=== PATIENT | male | born 1935 | race Caucasian/White ===

== ENCOUNTER 2018-06-07 07:55 | Emergency (ER) | payer MEDICARE, OTHER ==
[2018-06-07 08:14] VITALS: TEMP 97.5; BMI 28.3
--- NOTE | 2018-06-07 09:47 | PDOC ---
History of Present Illness - General Chief Complaint: Pain, Acute Stated Complaint: TESTICULAR PAIN Time Seen by Provider: 06/07/18 09:19 History Source: Patient Exam Limitations: Language Barrier ([id number]) - History of Present Illness Initial Comments: 06/07/18 09:55 83 yo M with a hx of HTN, HLD, and arthritis who presents to the emergency department with worsening left scrotal pain and swelling with concurrent right scrotal swelling. He states he has had this problem for 8 months, but it has acutely worsened since 05/05/2018. He is followed by Dr. Youssef (urology) in [place] and saw him last week and was ordered a testicular US with doppler. He was unable to wait due to severity of the pain. He described the pain in the left testicle as sharp, 9/10, non radiating, and without relief with tylenol. Denies the following: fever, chills, nausea, vomiting, headaches, abdominal pain , hematuria, hematochezia, melena, diarrhea, and leg pain/swelling. Endorses: constipation. Pmhx: Refer to above Shx: Prostate 8 yrs ago Meds: Unknown. denies anti-coagulant use Allergies: NKDA Social: Denies tobacco, alcohol, and substance abuse Past History - Past Medical History Allergies/Adverse Reactions: Allergies Allergy/AdvReac Type Severity Reaction Status Date / Time No Known Allergies Allergy Verified 06/07/18 10:12 Home Medications: Ambulatory Orders Gabapentin [Neurontin] mg PO ASDIR 06/07/18 Lisinopril [Zestril] 10 mg PO DAILY 06/07/18 Meloxicam [Mobic] 15 mg PO HS 06/07/18 Mirtazapine [Remeron -] 15 mg PO DAILY 06/07/18 Oxycodone HCl/Acetaminophen [Percocet 5-325 mg Tablet] 1 tab PO Q6H PRN #12 tablet MDD 4 tabs 06/07/18 Rosuvastatin Calcium [Crestor] 5 mg PO HS 06/07/18 COPD: No - Immunization History Immunization Up to Date: Yes - Suicide/Smoking/Psychosocial Hx Smoking History: Never smoked Hx Alcohol Use: No Drug/Substance Use Hx: No Substance Use Type: None Review of Systems - Review of Systems Able to Perform ROS?: Yes Is the patient limited Arabic proficient: Yes Constitutional: No: Chills, Diaphoresis, Fever ( ) HEENTM: No: Recent change in vision, Ear Pain, Nose Pain, Throat Pain, Throat Swelling, Mouth Pain Respiratory: No: Shortness of Breath Cardiac (ROS): No: Chest Pain, Lightheadedness, Palpitations, Syncope ABD/GI: Yes: Constipated. No: Diarrhea, Nausea, Rectal Bleeding, Vomiting, Abdominal cramping, Tarry Stools : Yes: Testicular Swelling, Testicular Pain. No: Burning, Dysuria, Frequency , Hematuria, Urgency Musculoskeletal: No: Back Pain, Joint Pain, Muscle Weakness Integumentary: No: Flushing, Lesions, Rash Neurological: No: Headache, Numbness, Tremors, Weakness, Dizziness Psychiatric: No: Stressors Endocrine: No: Unexplained Weight Gain Hematologic/Lymphatic: No: Anemia *Physical Exam - Vital Signs Last Vital Signs Temp Pulse Resp BP Pulse Ox 97.5 F L 66 16 147/57 L 96 06/07/18 08:11 06/07/18 08:11 06/07/18 08:11 06/07/18 08:11 06/07/18 08:11 - Physical Exam General Appearance: Yes: Nourished, Appropriately Dressed HEENT: positive: EOMI, XIAO, Normal ENT Inspection, Normal Voice, Symmetrical, Hearing Grossly Normal. negative: Scleral Icterus (R), Scleral Icterus (L), Lesions, Mendoza, Excessive drooling Neck: positive: Trachea midline. negative: Tender, Lymphadenopathy (R), Lymphadenopathy (L), Tender lateral, Tender midline Respiratory/Chest: positive: Lungs Clear, Normal Breath Sounds. negative: Chest Tender, Respiratory Distress, Accessory Muscle Use, Rapid RR, Crackles, Rales, Rhonchi, Stridor, Wheezing, Hyperresonant Cardiovascular: positive: Regular Rhythm, Regular Rate, S1, S2. negative: Systolic Murmur Gastrointestinal/Abdominal: positive: Normal Bowel Sounds, Flat, Soft. negative : Tender, Protuberent, Distended Male Genitalia: positive: testicular tenderness (bilateral), testicular mass ( testicular swelling bilaterally), other. negative: normal genitalia, normal prostate, hematuria Rectal Exam: positive: heme negative stool, normal rectal tone, other (enlarged prostate without tenderness to palpation). negative: hemorrhoids Lymphatic: negative: Adenopathy Musculoskeletal: positive: Normal Inspection, CVA Tenderness. negative: Vertebral Tenderness Extremity: positive: Normal Capillary Refill, Normal Inspection, Normal Range of Motion. negative: Tender, Swelling, Calf Tenderness Integumentary: positive: Normal Color, Dry, Warm. negative: Swelling Neurologic: positive: acid filler II-XII NML intact, Fully Oriented, Alert, Normal Mood/ Affect, Normal Response, Motor Strength 5/5. negative: Sensory Deficit ED Treatment Course - LABORATORY CBC & Chemistry Diagram: 06/07/18 09:55 06/07/18 09:55 Medical Decision Making - Medical Decision Making 83 yo M with a hx of HTN, HLD, and arthritis who presents to the emergency department with worsening left scrotal pain and swelling with concurrent right scrotal swelling. Initial vitals: Initial Vital Signs Temp Pulse Resp BP Pulse Ox 97.5 F L 66 16 147/57 L 96 06/07/18 08:11 06/07/18 08:11 06/07/18 08:11 06/07/18 08:11 06/07/18 08:11 work up: the patient produced an ultrasound and ct report done within the last month showing hydroceles bilaterally with the left larger than the right. likely this patient has worsening of hydrocele. need to rule out infectious etiology, testicular torsion, incarcerated bowel 2/2 inguinal hernia. Laboratory Tests 06/07/18 06/07/18 06/07/18 09:55 09:55 10:20 WBC 6.2 RBC 4.56 Hgb 13.8 Hct 39.4 MCV 86.4 MCH 30.3 MCHC 35.1 RDW 15.8 Plt Count 229 MPV 8.3 Absolute Neuts (auto) 4.5 Neutrophils % 72.2 Lymphocytes % 17.6 Monocytes % 5.9 Eosinophils % 3.7 Basophils % 0.6 Nucleated RBC % 0 Sodium 143 Potassium 4.4 Chloride 108 H Carbon Dioxide 27 Anion Gap 7 L BUN 26 H Creatinine 0.9 Creat Clearance w eGFR > 60 Random Glucose 78 Lactic Acid 0.9 Calcium 8.6 Total Bilirubin 0.5 AST 18 ALT 25 Alkaline Phosphatase 92 Creatine Kinase 144 Troponin I 0.04 Total Protein 6.9 Albumin 3.5 Urine Color Urine Appearance Urine pH Ur Specific [place] Urine Protein Urine Glucose (UA) Urine Ketones Urine Blood Urine Nitrite Urine Bilirubin Urine Urobilinogen Ur Leukocyte Esterase Stool Occult Blood 06/07/18 06/07/18 11:30 13:45 WBC RBC Hgb Hct MCV MCH MCHC RDW Plt Count MPV Absolute Neuts (auto) Neutrophils % Lymphocytes % Monocytes % Eosinophils % Basophils % Nucleated RBC % Sodium Potassium Chloride Carbon Dioxide Anion Gap BUN Creatinine Creat Clearance w eGFR Random Glucose Lactic Acid Calcium Total Bilirubin AST ALT Alkaline Phosphatase Creatine Kinase Troponin I Total Protein Albumin Urine Color Straw Urine Appearance Clear Urine pH 7.0 Ur Specific [place] 1.046 H Urine Protein Negative Urine Glucose (UA) Negative Urine Ketones Negative Urine Blood Negative Urine Nitrite Negative Urine Bilirubin Negative Urine Urobilinogen 2.0 Ur Leukocyte Esterase Negative Stool Occult Blood Negative patients UA was within normal limits. stool occult blood test was negative. no elevated WBC. the patient's scrotal US showed no testicular torsion, confirms bilateral hydroceles. CT abdomen pelvis shows hydroceles but no incarcerated bowel and no inguinal hernia noted. I discussed the physical exam findings, ancillary test results, and final diagnoses with the patient. I answered all of the patients questions to their satisfaction. The patient was satisfied with the care received and felt comfortable with the discussed discharge and treatment plan and accepted it. They agreed to follow up with their primary medical physical physician within 24 -72 hours after discharge for follow up care and management. The patient had stable vital signs at the time of discharge. The patient agreed to follow up with the recommended and referred urologist within 24 hours for follow up care and management. Dispo: Discharge *DC/Admit/Observation/Transfer Diagnosis at time of Disposition: Hydrocele Qualifiers: Hydrocele type: unspecified Qualified Code(s): N43.3 - Hydrocele, unspecified - Discharge Dispostion Disposition: HOME Decision to Admit order: No - Prescriptions Prescriptions: Oxycodone HCl/Acetaminophen [Percocet 5-325 mg Tablet] 1 tab PO Q6H PRN #12 tablet MDD 4 tabs PRN Reason: Pain - Referrals Referrals: Elvira Becker MD [Primary Care Provider] - Don Barron MD [Staff Physician] - - Patient Instructions Additional Instructions: You were seen in the emergency department for scrotal pain. Your imaging results show large bilateral hydroceles with no evidence of blood flow cut off or infection. Yours lab were within normal limits. Please follow up with the referred urologist within 24 hours for follow up care and management. Please follow up with your primary medical doctor within 48-72 hours. Please take the medication prescribed to you as directed when needed. Please return to the emergency department if you develop penile discharge, inability to urinate, fever, chills, nausea and vomiting, and worsening pain. Thank you. - Post Discharge Activity
[2018-06-07 10:36] LABS: BASO % 0.6 % (0-2.0); EOS % 3.7 % (0-4.5); HEMATOCRIT 39.4 % (35.4-49); HEMOGLOBIN 13.8 GM/dL (11.7-16.9); LYMPH % 17.6 % (8-40); MCH 30.3 pg (25.7-33.7); MCHC 35.1 g/dl (32.0-35.9); MEAN CELL VOLUME 86.4 fl (80-96); MEAN PLT VOLUME 8.3 fl (7.5-11.1); MONO % 5.9 % (3.8-10.2); NEUT % 72.2 % (42.8-82.8); PLATELET COUNT 229 K/MM3 (134-434); RBC 4.56 M/mm3 (4.00-5.60); RDW 15.8 % (11.9-15.9); WHITE BLOOD COUNT 6.2 K/mm3 (4.0-10.0)
[2018-06-07 11:06] LABS: ALBUMIN 3.5 g/dl (3.4-5.0); ALK PHOS 92 U/L (45-117); ANION GAP 7 MMOL/L (8-16); BILIRUBIN,TOTAL 0.5 mg/dL (0.2-1); BLOOD UREA NITROGEN 26 mg/dL (7-18); CALCIUM 8.6 mg/dL (8.5-10.1); CHLORIDE 108 mmol/L (98-107); CO2 27 mmol/L (21-32); CREATININE 0.9 mg/dL (0.55-1.3); GLUCOSE,RANDOM 78 mg/dL (74-106); POTASSIUM 4.4 mmol/L (3.5-5.1); SGOT/AST 18 U/L (15-37); SGPT/ALT 25 U/L (13-61); SODIUM 143 mmol/L (136-145); TOT PROT 6.9 g/dl (6.4-8.2)
--- NOTE | 2018-06-07 13:03 | PDOC ---
Attending Attestation - Resident Resident Name: GenevieveJc - ED Attending Attestation I have performed the following: I have examined & evaluated the patient, The case was reviewed & discussed with the resident, I agree w/resident's findings & plan, Exceptions are as noted - HPI HPI: 06/07/18 13:02 83 yo M with a hx of HTN, HLD, and arthritis who presents to the emergency department with scrotal pain and swelling x 8 weeks. Pt was seen by Dr. Youssef, urologist, who performed scrotal US that showed hydrocele. Pt reports that the pain has been progressively worsening. He endorses lower abdominal pain as well but denies N/V. Denies F/C. Denies dysuria. - Physicial Exam PE: 06/07/18 13:04 Agree with resident exam - Medical Decision Making 06/07/18 13:04 83 M with scrotal swelling and pain. Likely 2/2 known hydroceles. Will evaluate for infectious process. Also consider incarcerated inguinal hernia. - Labs, UA - Scrotal US - CTAP 06/07/18 14:40 Labs and UA wnl SCrotal US shows bilateral hydrocele CT negative for inguinal hernia Pt informed of results, understands need for uro f/u. Pt is well appearing, with normal vitals. Clinically stable for DC at this time. I discussed the physical exam findings, ancillary test results and final diagnoses with the patient. I answered all of the patient's questions. The patient was satisfied with the care received and felt comfortable with the discharge plan and treatment plan. The patient agrees to follow up with the primary care physician within 24-72 hours.
[2018-06-07 13:57] LABS: URINE APPEARANCE CLEAR; URINE BILIRUBIN NEGATIVE (<2.0 mg/dL); URINE COLOR STRAW; URINE GLUCOSE (UA) NEGATIVE (NEGATIVE); URINE KETONE NEGATIVE (NEGATIVE); URINE LEUK ESTERASE NEGATIVE (NEGATIVE); URINE NITRITE NEGATIVE (NEGATIVE); URINE PROTEIN NEGATIVE (NEGATIVE)
[2018-06-07 15:10] VITALS: BP 138/74; PULSE 80
== END 2018-06-07 15:17 | disposition home or self-care (01) ==
LOC: JER 07:55
DX: N43.2 Other hydrocele (principal); I10 Essential (primary) hypertension; E78.5 Hyperlipidemia, unspecified
CPT/HCPCS: 36415; 71045-TC-FY; 74177-TC; 76870-TC; 80053; 81003; 82272; 82550; 83605; 84484; 85025; 87086; 99282-25; Q9967